=== PATIENT | male | born 1935 | race Caucasian/White ===

== ENCOUNTER 2019-07-18 11:52 | Inpatient (IN) ==
[2019-07-18] MEDS ORDERED: Nitroglycerin 0.4 MG TAB.SUBL SL PRN (14:27)
[2019-07-18] MEDS ORDERED: Ammonium Lactate 30 APPL/225 GM BOTTLE TP PRN (14:27)
[2019-07-18] MEDS ORDERED: rOPINIRole 0.25 MG TABLET PO PRN (14:27)
[2019-07-18] MEDS ORDERED: *HR* Dextrose 50 % in Water (Syg) 50 ML SYRINGE IVP PRN (14:29)
[2019-07-18] MEDS ORDERED: Dextrose Gel 15 GM/37.5 ML TUBE PO PRN ×2 (14:29)
[2019-07-18] MEDS ORDERED: D5% in Water 1,000 ML IVC PRN (14:29)
[2019-07-18] MEDS ORDERED: Insulin LISPRO 300 UNITS/3 ML VIAL SQ SCH ×2 (16:30→21:00)
[2019-07-18 16:51] VITALS: BP 142/71
[2019-07-18] MEDS ORDERED: Furosemide 40 MG TABLET PO SCH (17:00)
[2019-07-18] MEDS ORDERED: Pregabalin 75 MG CAPSULE PO SCH (21:00)
[2019-07-18] MEDS ORDERED: Insulin DETEMIR 100 UNIT/ML X5UNITS SQ SCH (21:00)
[2019-07-19] MEDS ORDERED: Furosemide 40 MG TABLET PO SCH (07:30)
[2019-07-19] MEDS ORDERED: Isosorbide MONOnitrate (24 HR) 60 MG TAB.ER.24H PO SCH (09:00)
[2019-07-19] MEDS ORDERED: Nitroglycerin 0.4 MG PATCH.TD24 TD SCH (09:00)
[2019-07-19] MEDS ORDERED: Aspirin 81 MG TAB.CHEW PO SCH (09:00)
[2019-07-19] MEDS ORDERED: amLODIPine 5 MG TABLET PO SCH (09:00)
[2019-07-19] MEDS ORDERED: Metoprolol XL (24 HR) Succ 25 MG TAB.ER.24H PO SCH (09:00)
== END 2019-07-18 18:10 | disposition short-term general hospital (02) | DRG 947 ==
LOC: INPPIK 15:55
PROVIDERS: ADMIT Family Medicine; ATTEND Family Medicine